=== PATIENT | male | born 1990 | race Caucasian/White ===

== ENCOUNTER 2020-03-09 18:29 | Emergency (ER) | payer BC ==
[2020-03-09 18:42] VITALS: BP 137/98; PULSE 74
[2020-03-09] MEDS ORDERED: HYDROmorphone 1 MG/ML Syringe IVPUSH STA (18:42)
[2020-03-09] MEDS ORDERED: Ondansetron 4 MG/2 ML SDV IVPUSH ONE (18:42)
[2020-03-09] MEDS ORDERED: Sodium Chloride 0.9% 1,000 ML IV SCH (18:45)
--- NOTE | 2020-03-09 18:53 | EDM.PDOC ---
ED HPI GENERAL MEDICAL PROBLEM - General Chief Complaint: Flank Pain Stated Complaint: possible kidney stone Time Seen by Provider: 03/09/20 18:39 Source of Information: Reports: Patient, RN Notes Reviewed History Limitations: Reports: No Limitations - History of Present Illness INITIAL COMMENTS - FREE TEXT/NARRATIVE: Patient is a 29-year-old male who presents to the ED for the evaluation of a possible kidney stone. Patient noted he had some right side pain yesterday, but this did worsen roughly 30 minutes ago, he states is very sharp and shooting and feels like kidney stones. He has had kidney stones in the past. None of which have needed removal. He notes that he had one episode of nausea and vomiting before coming here otherwise he has been feeling well no fevers or chills, cough or shortness of breath. Patient denies any sort of blood in the urine. He did not take any pain medications prior to coming to the ER. 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 Right Flank Pain Score (Numeric/FACES): 8 - Related Data Allergies Allergy/AdvReac Type Severity Reaction Status Date / Time kiwi Allergy Hives Verified 03/09/20 18:42 Penicillins Allergy Cannot Verified 03/09/20 18:42 Remember venom-honey bee Allergy Anaphylactic Verified 03/09/20 18:42 Shock venom-wasp Allergy Anaphylactic Verified 03/09/20 18:42 Shock Past Medical History Gastrointestinal History: Reports: Inflammatory Bowel Disease, Other (See Below) Other Gastrointestinal History: Ulcerative Colitis Genitourinary History: Reports: Renal Calculus - Infectious Disease History Infectious Disease History: Reports: Novel Coronavirus (11/2019) - Past Surgical History HEENT Surgical History: Reports: Tonsillectomy GI Surgical History: Reports: Colonoscopy Social & Family History - Family History Family Medical History: No Pertinent Family History - Tobacco Use Tobacco Use Status *Q: Never Tobacco User - Caffeine Use Caffeine Use: Reports: Coffee, Energy Drinks, Tea - Recreational Drug Use Recreational Drug Use: No ED ROS GENERAL - Review of Systems Review Of Systems: Comprehensive ROS is negative, except as noted in HPI. ED EXAM, RENAL/ - Physical Exam Exam: See Below Exam Limited By: No Limitations General Appearance: Alert, WD/WN, No Apparent Distress Respiratory/Chest: No Respiratory Distress, Lungs Clear, Normal Breath Sounds, No Accessory Muscle Use, Chest Non-Tender Cardiovascular: Normal Peripheral Pulses, Regular Rate, Rhythm, No Murmur GI/Abdominal: Normal Bowel Sounds, Soft, Non-Tender, No Distention, No Mass Back Exam: No: CVA Tenderness (L), CVA Tenderness (R) Extremities: Normal Inspection, Normal Capillary Refill Neurological: Alert, Oriented, Normal Cognition, No Motor/Sensory Deficits Psychiatric: Normal Affect, Normal Mood Skin Exam: Warm, Dry, Intact, Normal Color, No Rash Course - Vital Signs Last Recorded V/S: Last Vital Signs Temp 97.6 F 03/09/20 18:39 Pulse 74 03/09/20 18:39 Resp 14 03/09/20 18:39 BP 137/98 H 03/09/20 18:39 Pulse Ox 100 03/09/20 18:39 - Orders/Labs/Meds Orders: Active Orders 24 hr Category Date Time Status Strain Urine [RC] ASDIRECTED Care 03/09/20 18:42 Ordered Abdomen Pelvis wo Cont [CT] Stat Exams 03/09/20 18:42 Ordered Sodium Chloride 0.9% @ 150 MLS/HR (1000ml Bag) Med 03/09/20 18:45 Ordered Sodium Chloride 0.9% [Normal Saline] 1,000 ml IV ASDIRECTED Medication Orders Sodium Chloride (Normal Saline) 1,000 mls @ 150 mls/hr IV ASDIRECTED DARCI Last Admin: 03/09/20 18:58 Dose: 150 mls/hr Documented by: KIRSTEN Labs: Laboratory Tests 03/09/20 03/09/20 03/09/20 Range/Units 18:50 19:15 19:15 WBC 7.20 (4.23-9.07) K/mm3 RBC 5.21 (4.63-6.08) M/mm3 Hgb 15.4 D (13.7-17.5) gm/dl Hct 45.3 (40.1-51.0) % MCV 86.9 (79.0-92.2) fl MCH 29.6 (25.7-32.2) pg MCHC 34.0 (32.2-35.5) g/dl RDW Std Deviation 40.1 (35.1-43.9) fL Plt Count 285 (163-337) K/mm3 MPV 10.1 (9.4-12.3) fl Neut % (Auto) 56.0 (34.0-67.9) % Lymph % (Auto) 33.6 (21.8-53.1) % Greene % (Auto) 6.4 (5.3-12.2) % Eos % (Auto) 3.3 (0.8-7.0) Baso % (Auto) 0.6 (0.1-1.2) % Neut # (Auto) 4.03 (1.78-5.38) K/mm3 Lymph # (Auto) 2.42 (1.32-3.57) K/mm3 Greene # (Auto) 0.46 (0.30-0.82) K/mm3 Eos # (Auto) 0.24 (0.04-0.54) K/mm3 Baso # (Auto) 0.04 (0.01-0.08) K/mm3 Sodium 138 (136-145) mEq/L Potassium 3.6 (3.5-5.1) mEq/L Chloride 105 (98-107) mEq/L Carbon Dioxide 25 (21-32) mEq/L Anion Gap 11.6 (5-15) BUN 16 (7-18) mg/dL Creatinine 1.4 H (0.7-1.3) mg/dL Est Cr Clr Drug Dosing 79.66 mL/min Estimated GFR (MDRD) 60 (>60) mL/min BUN/Creatinine Ratio 11.4 L (14-18) Glucose 108 H (74-106) mg/dL Calcium 9.0 (8.5-10.1) mg/dL Total Bilirubin 0.5 (0.2-1.0) mg/dL AST 19 (15-37) U/L ALT 40 (16-63) U/L Alkaline Phosphatase 76 (46-116) U/L C-Reactive Protein (<1.0) mg/dL Total Protein 7.1 (6.4-8.2) g/dl Albumin 4.2 (3.4-5.0) g/dl Globulin 2.9 gm/dL Albumin/Globulin Ratio 1.5 (1-2) Urine Color Yellow (Yellow) Urine Appearance Slt cloudy H (Clear) Urine pH 7.0 (5.0-8.0) Ur Specific Standish 1.025 (1.005-1.030) Urine Protein Trace H (Negative) Urine Glucose (UA) Negative (Negative) Urine Ketones Trace H (Negative) Urine Occult Blood 2+ H (Negative) Urine Nitrite Negative (Negative) Urine Bilirubin Negative (Negative) Urine Urobilinogen 0.2 (0.2-1.0) Ur Leukocyte Esterase Negative (Negative) Urine RBC >100 H (0-5) /hpf Urine WBC 0-5 (0-5) /hpf Ur Epithelial Cells Not seen (0-5) /hpf Urine Bacteria Moderate H (FEW) /hpf Urine Mucus Moderate H (FEW) /hpf 03/09/ Range/Units 19:15 WBC (4.23-9.07) K/mm3 RBC (4.63-6.08) M/mm3 Hgb (13.7-17.5) gm/dl Hct (40.1-51.0) % MCV (79.0-92.2) fl MCH (25.7-32.2) pg MCHC (32.2-35.5) g/dl RDW Std Deviation (35.1-43.9) fL Plt Count (163-337) K/mm3 MPV (9.4-12.3) fl Neut % (Auto) (34.0-67.9) % Lymph % (Auto) (21.8-53.1) % Greene % (Auto) (5.3-12.2) % Eos % (Auto) (0.8-7.0) Baso % (Auto) (0.1-1.2) % Neut # (Auto) (1.78-5.38) K/mm3 Lymph # (Auto) (1.32-3.57) K/mm3 Greene # (Auto) (0.30-0.82) K/mm3 Eos # (Auto) (0.04-0.54) K/mm3 Baso # (Auto) (0.01-0.08) K/mm3 Sodium (136-145) mEq/L Potassium (3.5-5.1) mEq/L Chloride (98-107) mEq/L Carbon Dioxide (21-32) mEq/L Anion Gap (5-15) BUN (7-18) mg/dL Creatinine (0.7-1.3) mg/dL Est Cr Clr Drug Dosing mL/min Estimated GFR (MDRD) (>60) mL/min BUN/Creatinine Ratio (14-18) Glucose (74-106) mg/dL Calcium (8.5-10.1) mg/dL Total Bilirubin (0.2-1.0) mg/dL AST (15-37) U/L ALT (16-63) U/L Alkaline Phosphatase (46-116) U/L C-Reactive Protein 0.2 (<1.0) mg/dL Total Protein (6.4-8.2) g/dl Albumin (3.4-5.0) g/dl Globulin gm/dL Albumin/Globulin Ratio (1-2) Urine Color (Yellow) Urine Appearance (Clear) Urine pH (5.0-8.0) Ur Specific Standish (1.005-1.030) Urine Protein (Negative) Urine Glucose (UA) (Negative) Urine Ketones (Negative) Urine Occult Blood (Negative) Urine Nitrite (Negative) Urine Bilirubin (Negative) Urine Urobilinogen (0.2-1.0) Ur Leukocyte Esterase (Negative) Urine RBC (0-5) /hpf Urine WBC (0-5) /hpf Ur Epithelial Cells (0-5) /hpf Urine Bacteria (FEW) /hpf Urine Mucus (FEW) /hpf Meds: Medications Generic Name Dose Route Start Last Admin Trade Name Freq PRN Reason Stop Dose Admin Sodium Chloride 1,000 mls @ 150 mls/hr 03/09/20 18:45 03/09/20 18:58 Normal Saline IV 150 mls/hr ASDIRECTED DARCI Administration Discontinued Medications Generic Name Dose Route Start Last Admin Trade Name Freq PRN Reason Stop Dose Admin Hydromorphone HCl 1 mg 03/09/20 18:42 03/09/20 18:58 Dilaudid IVPUSH 03/09/20 18:43 1 mg ONETIME STA Administration Ondansetron HCl 4 mg 03/09/20 18:42 03/09/20 18:59 Zofran IVPUSH 03/09/20 18:43 4 mg ONETIME ONE Administration Oxycodone/Acetaminophen 2 tab 03/09/20 19:50 Percocet 325-5 Mg PO 03/09/20 19:51 ONETIME ONE Tamsulosin HCl 0.4 mg 03/09/20 19:21 03/09/20 19:39 Flomax PO 03/09/20 19:22 0.4 mg ONETIME ONE Administration - Re-Assessments/Exams Free Text/Narrative Re-Assessment/Exam: 03/09/20 18:53 Patient presents to the ED for his possible kidney stone. We will get IV, IV fluids, IV pain meds, nausea meds basic labs and abdomen pelvis CT without contrast for further evaluation. 03/09/20 19:[address] has been performed, there is a 3 mm calculus at the distal right ureter at the right UVJ with hydronephrosis/hydroureter that is mild. There are additional bilateral renal calculi none within the ureter however. The appendix was found and distended up to 9 mm however there is no definite periappendiceal stranding. Correlate clinically for any evidence of acute early appendicitis we have just a urine back and has gross hematuria, so consistent with a kidney stone. Do not have the CBC back to see if he has elevated white count. 03/09/20 20:03 I did go and reassess the patient, his abdomen is not impressive for acute appendicitis at this time. White count demonstrates no elevation, there is no left shift, there is also no increase in inflammatory markers in the CRP. However due to the findings of the CT I did give the patient strict return precautions, and I did advise him to get seen by another provider within 24 to 48 hours so his abdomen can be reassessed. He notes he will do as such. Departure - Departure Time of Disposition: 20:06 Disposition: Home, Self-Care 01 Condition: Good Clinical Impression: Kidney stone on right side, Other specified diseases of appendix - Discharge Information *PRESCRIPTION DRUG MONITORING PROGRAM REVIEWED*: Yes *COPY OF PRESCRIPTION DRUG MONITORING REPORT IN PATIENT DANII: No Instructions: Dietary Guidelines to Help Prevent Kidney Stones, Appendicitis, Adult, [id number] Referrals: Abhay Blum MD [Primary Care Provider] - Forms: ED Department Discharge Additional Instructions: You were evaluated in the ER today for your right flank pain. Your urinalysis did demonstrate some blood in urine, which is suggestive of a kidney stone at this time. A CT was done at this ER visit, this demonstrated a 3 mm stone within your distal right ureter, this should pass by itself and you should not need surgical intervention. You have been given a strainer, please use every time you use the bathroom to make sure that the kidney stone has passed. Your CT also demonstrated a distended appendix up to 9 mm, however there was no inflammation, your white count was not elevated, and your CRP was not elevated, all of which would demonstrate there is no sign of a bacterial infection that would correlate with acute appendicitis at this time. Nonetheless if your pain seems to settle into your right lower quadrant, or if you develop fever, or generalized abdomen pain, this would be cause for concern to return to the ER immediately for management. It is likely that this could just be an incidental finding, and that nothing will come of this; however I strongly recommend you follow-up with your regular care provider, sometime tomorrow or the next day for recheck of your abdomen to make sure that your symptoms are getting better as expected. Recommend that you increase your oral fluid intake to try to help the stone pass. You have been given a few tablets of pain medication, please take as prescribed. These medications are highly addictive, please take as few as you need to. These medications also may cause constipation, please take a stool softener like MiraLAX while taking these medications. You were given a prescription for Flomax as well, 1 tablet once a day, until your kidney stone passes. If your pain is not much better in a week's time, you may need to follow up with your primary care physician, for a possible urology referral. Please return to the ED if your symptoms change or worsen. Sepsis Event Note (ED) - Evaluation Sepsis Screening Result: No Definite Risk - Focused Exam Vital Signs: Vital Signs Temp Pulse Resp BP Pulse Ox 03/09/20 18:39 97.6 F 74 14 137/98 H 100 - My Orders Last 24 Hours: My Active Orders 03/09/20 18:42 Strain Urine [RC] ASDIRECTED Abdomen Pelvis wo Cont [CT] Stat 03/09/20 18:45 Sodium Chloride 0.9% @ 150 MLS/HR (1000ml Bag) Sodium Chloride 0.9% [Normal Saline] 1,000 ml IV ASDIRECTED - Assessment/Plan Last 24 Hours: My Active Orders 03/09/20 18:42 Strain Urine [RC] ASDIRECTED Abdomen Pelvis wo Cont [CT] Stat 03/09/20 18:45 Sodium Chloride 0.9% @ 150 MLS/HR (1000ml Bag) Sodium Chloride 0.9% [Normal Saline] 1,000 ml IV ASDIRECTED
[2020-03-09] MEDS ORDERED: Tamsulosin 0.4 MG Cap.ER PO ONE (19:21)
[2020-03-09] MEDS ORDERED: Acetaminophen/oxyCODONE 325-5 MG Tab PO ONE (19:50)
--- NOTE | 2020-03-10 08:14 | CT ---
CT abdomen and pelvis Technique: Multiple axial sections were obtained from above the dome of the diaphragm inferiorly to the pubic symphysis. Intravenous and oral contrast were not utilized. Study has been performed as a ureteral stone protocol. Reconstructed coronal and sagittal images were obtained. Comparison: Previous CT abdomen and pelvis exam dated 07/15/13. Findings: Right ureter is prominent down to the bladder. These findings are caused by an obstructing calculus within the distal right ureter close to the UVJ. This calcification measures about 3.4 cm. No additional ureteral calculi are seen. Nonobstructing calculus is noted within the lower right kidney as well as an additional 2 nonobstructing calculi within the lower left kidney. Visualized lung bases show nothing acute. Visualized noncontrast liver and spleen show no focal abnormality. Gallbladder contains no calcified gallstones. Adrenal glands show no nodules. Pancreas shows no abnormality. Aorta shows no aneurysm. No retroperitoneal adenopathy or mesenteric abnormalities are seen. No pelvic mass or adenopathy is appreciated. Appendix is slightly prominent in size but no inflammatory change is seen so finding is most likely a normal variant. Small fat-containing umbilical hernia is noted. Bone window settings were reviewed which show no acute osseous finding. Impression: 1. Approximate 3.4 mm obstructing stone within the distal right ureter close to the UVJ. 2. Nonobstructing calculi within both kidneys. 3. Other findings believed to be incidental as noted above. Diagnostic code #3 I agree with preliminary report from [facility], finalized on 03/09/20, 8:14 PM [employer]UM[employer]MER
== END 2020-03-09 20:20 | disposition home or self-care (01) ==
LOC: JD.ED 18:29
DX: N13.2 Hydronephrosis with renal and ureteral calculous obstruction (principal); K38.8 Other specified diseases of appendix; Z88.0 Allergy status to penicillin; Z91.030 Bee allergy status; Z91.018 Allergy to other foods; Z86.19 Personal history of other infectious and parasitic diseases; Z90.49 Acquired absence of other specified parts of digestive tract
CPT/HCPCS: 36415; 74176; 80053; 81001; 85025; 86140; 96374; 96375; 99284; A9270; J1170; J2405; J7030

== ENCOUNTER 2021-08-13 03:28 | Emergency (ER) | payer BC ==
[2021-08-13 03:39] VITALS: BP 128/85; PULSE 81
[2021-08-13] MEDS ORDERED: Ketorolac 30 MG/ML SDV IM ONE (03:52)
== END 2021-08-13 06:02 | disposition home or self-care (01) ==
LOC: JD.ED 03:28
DX: S39.012A Strain of muscle, fascia and tendon of lower back, initial encounter (principal); N20.0 Calculus of kidney; Z88.0 Allergy status to penicillin; Z91.018 Allergy to other foods; Z91.030 Bee allergy status; Z86.16 Personal history of COVID-19
CPT/HCPCS: 36415; 74176; 80053; 81001; 85025; 96372; 99284; J1885

== ENCOUNTER 2022-08-27 05:35 | Emergency (ER) | payer BC ==
[2022-08-27] MEDS ORDERED: Ondansetron 4 MG/2 ML SDV IVPUSH ONE (05:52)
[2022-08-27] MEDS ORDERED: Ketorolac 30 MG/ML SDV IVPUSH ONE (05:52)
[2022-08-27 06:13] LABS: BASOPHILS ABSOLUTE AUTO 0.03 K/mm3 (0.01-0.08); BASOPHILS PERCENT AUTO 0.4 % (0.1-1.2); EOSINOPHILS ABSOLUTE AUTO 0.17 K/mm3 (0.04-0.54); EOSINOPHILS PERCENT AUTO 2.4 (0.8-7.0); HEMATOCRIT 46.2 % (40.1-51.0); HEMOGLOBIN 16.1 gm/dl (13.7-17.5); IMMATURE GRAN ABSOLUTE AUTO 0.03 K/mm3 (0.00-0.10); IMMATURE GRAN PERCENT AUTO 0.4 % (<=1.0); LYMPHOCYTES ABSOLUTE AUTO 2.83 K/mm3 (1.32-3.57); LYMPHOCYTES PERCENT AUTO 40.1 % (21.8-53.1); MEAN CORPUSCULAR HGB CONC 34.8 g/dl (32.2-35.5); MONOCYTES ABSOLUTE AUTO 0.73 K/mm3 (0.30-0.82); MONOCYTES PERCENT AUTO 10.4 % (5.3-12.2); NEUTROPHILS ABSOLUTE AUTO 3.26 K/mm3 (1.78-5.38); NEUTROPHILS PERCENT AUTO 46.3 % (34.0-67.9); PLATELET COUNT,PLT 287 K/mm3 (163-337); RED BLOOD CELL COUNT 5.37 M/mm3 (4.63-6.08); WHITE BLOOD CELL COUNT,WBC 7.05 K/mm3 (4.23-9.07)
[2022-08-27 06:17] LABS: ANION GAP 12.6 (5-15); BUN/CREATININE RATIO 22.7 (14-18); CALCIUM 8.9 mg/dL (8.5-10.1); CREATININE 1.1 mg/dL (0.7-1.3); EST CRCL DRUG DOSING (CG) 99.55 mL/min; POTASSIUM,K 3.6 mEq/L (3.5-5.1)
[2022-08-27] MEDS ORDERED: Morphine 4 MG/ML Syringe IVPUSH ONE (06:19)
[2022-08-27 07:37] LABS: APPEARANCE,URINE CLOUDY (Clear); BILIRUBIN,URINE NEGATIVE (Negative); COLOR,URINE AMBER (Yellow); GLUCOSE,URINE NEGATIVE (Negative); KETONES,URINE NEGATIVE (Negative); LEUKOCYTE ESTERASE,URINE NEGATIVE (Negative); NITRITE,URINE NEGATIVE (Negative); OCCULT BLOOD,URINE 3+ (Negative); PROTEIN,URINE 1+ (Negative); UROBILINOGEN,URINE 0.2 (0.2-1.0)
[2022-08-27 08:08] LABS: BACTERIA,URINE MODERATE /hpf (FEW); MUCUS,URINE MODERATE /hpf (FEW); RBC,URINE >100 /hpf (0-5); SQUAMOUS EPITHELIAL CELLS,UR 0-5 /hpf (0-5); WBC,URINE 0-5 /hpf (0-5)
[2022-08-27 09:18] VITALS: BP 137/88; PULSE 62
== END 2022-08-27 09:30 | disposition home or self-care (01) ==
LOC: JD.ED 05:35
DX: N13.2 Hydronephrosis with renal and ureteral calculous obstruction (principal); Z86.16 Personal history of COVID-19; Z91.018 Allergy to other foods; Z88.0 Allergy status to penicillin; Z91.030 Bee allergy status; Z91.038 Other insect allergy status
CPT/HCPCS: 36415; 74176; 80048; 81001; 85025; 96374; 96375; 99284; J1885; J2270; J2405

== ENCOUNTER 2023-05-06 12:06 | Emergency (ER) | payer BC ==
[2023-05-06 12:56] VITALS: BP 144/95; PULSE 81
[2023-05-06] MEDS: Oxymetazoline 0.05% Nasal Spray 30 ML Bottle NAS ONE (13:25)
[2023-05-06 13:49] LABS: BASOPHILS ABSOLUTE AUTO 0.1 K/mm3 (0.0-0.2); BASOPHILS PERCENT AUTO 0.9 % (0.0-1.0); EOSINOPHILS ABSOLUTE AUTO 0.2 K/mm3 (0.0-0.4); EOSINOPHILS PERCENT AUTO 3.1 % (0.0-6.0); HEMATOCRIT 45.3 % (42.0-52.0); IMMATURE GRAN ABSOLUTE AUTO 0.01 K/mm3 (0.00-0.05); IMMATURE GRAN PERCENT AUTO 0.2 % (0.0-0.4); LYMPHOCYTES ABSOLUTE AUTO 1.4 K/mm3 (1.0-4.8); LYMPHOCYTES PERCENT AUTO 24.5 % (24.0-44.0); MEAN CORPUSCULAR HEMOGLOBIN 30.9 pg (28.0-32.0); MEAN CORPUSCULAR HGB CONC 35.3 g/dl (32.0-36.0); MEAN CORPUSCULAR VOLUME 87.5 fl (83.0-99.0); MEAN PLATELET VOLUME 9.4 fl (9.4-12.4); MONOCYTES ABSOLUTE AUTO 0.6 K/mm3 (0.0-0.8); MONOCYTES PERCENT AUTO 10.8 % (0.0-8.0); NEUTROPHILS ABSOLUTE AUTO 3.4 K/mm3 (1.8-7.7); NEUTROPHILS PERCENT AUTO 60.5 % (41.0-71.0); PLATELET COUNT,PLT 237 K/mm3 (150-400); RED BLOOD CELL COUNT 5.18 M/mm3 (4.52-5.90); WHITE BLOOD CELL COUNT,WBC 5.56 K/mm3 (3.9-11.3)
== END 2023-05-06 14:26 | disposition home or self-care (01) ==
LOC: JD.ED 12:06
DX: R04.0 Epistaxis (principal); Z88.0 Allergy status to penicillin; Z91.030 Bee allergy status; Z91.018 Allergy to other foods; Z86.16 Personal history of COVID-19
CPT/HCPCS: 36415; 85025; 99283; A9270